=== PATIENT | female | born 1955 | race Hispanic/Latino ===

== ENCOUNTER 2017-08-26 07:59 | Day surgery (SDC) | payer MEDICARE ==
[2017-08-05 10:27] VITALS: BMI 25.2
[2017-08-26] MEDS ORDERED: Iodixanol 320 MG/ML 100 ML BOTTLE IV ONE (08:12)
[2017-08-26 09:07] LABS: INR 0.9; PROTHROMBIN TIME 10.3 SECONDS (9.7-12.2)
[2017-08-26] MEDS ORDERED: Midazolam 2 MG/2 ML VIAL ONE ×2 (09:13→09:40)
[2017-08-26] MEDS ORDERED: Lidocaine 2% Inj (20ml) ONE (09:13)
[2017-08-26] MEDS ORDERED: Nitroglycerin 50mg in D5W 0 MG/0 ML BOTTLE IV ONE (09:15)
[2017-08-26] MEDS ORDERED: Sodium Chloride 0.9% 1,000 ML IV SCH (13:30)
== END 2017-08-26 14:25 | disposition home or self-care (01) ==
LOC: C.SPRAD 07:59
PROVIDERS: ATTEND Internal Medicine Interventional Cardiology
DX: I73.9 Peripheral vascular disease, unspecified (principal)
CPT/HCPCS: 36200; 36415; 75625; 75716; 85610; 85730; C1766; C1769; C1887; J1644; J2250; J3010; J7040; Q9967

== ENCOUNTER → 2017-09-11 | Day surgery (SDC) | payer MEDICARE ==
[2017-08-05 10:27] VITALS: BMI 25.2
[~2017-09-11] MED LIST: Dextrose 5%/0.45% NS 1,000 ML IV SCH; Iodixanol 320 MG/ML 100 ML BOTTLE IV ONE; Lidocaine 2% Inj (20ml) ONE; Midazolam 2 MG/2 ML VIAL ONE; Vancomycin 1 g Inj ONE
[2017-09-11 10:44] LABS: BASO # 0.1 K/uL (0.0-0.2); BASO % 0.6 % (0.0-2.0); EOS # 0.4 K/uL (0.0-0.7); EOS % 3.2 % (0.0-4.0); HEMOGLOBIN 15.6 g/dL (11.0-16.0); LYMPH # 2.5 K/uL (1.0-4.3); LYMPH % 21.3 % (20.0-40.0); MEAN CELL VOLUME 92.5 fL (81.0-99.0); MEAN CORPUSCULAR HEMOGLOBIN 32.5 pg (27.0-31.0); MEAN CORPUSCULAR HGB CONC 35.1 g/dL (33.0-37.0); MEAN PLATELET VOLUME 8.9 fL (7.2-11.7); MONO # 1.1 K/uL (0.0-0.8); MONO % 9.5 % (0.0-10.0); NEUT # 7.7 K/uL (1.8-7.0); NEUT % 65.4 % (50.0-75.0); RBC 4.8 Mil/uL (3.80-5.20); RED CELL DISTRIBUTION WIDTH 12.9 % (11.5-14.5); WHITE BLOOD COUNT 11.7 K/uL (4.8-10.8)
--- NOTE | 2017-09-11 14:08 | PCM.SURG1 ---
Surgeon's Initial Post Op Note - Surgeon's Notes Surgeon: luli/ yuliya green Laborer Car Barn: 0 Type of Anesthesia: IV Sedation Anesthesia Administered By: iad Pre-Operative Diagnosis: right iliac occlusion/ claudication Operative Findings: right iliac occlusion Post-Operative Diagnosis: same Operation Performed: aortofemoral angiogram. balloon angioplasty right common and external iliac artery 6 MM. VBX 7x39 stent right. 7x79 VBX LEFT. PRESSURE CLOSURE BOTH GROINS Specimen/Specimens Removed: 0 Estimated Blood Loss: EBL {In ML}: 35 Blood Products Given: N/A Drains Used: No Drains Post-Op Condition: Good Date of Surgery/Procedure: 09/11/17 Time of Surgery/Procedure: 14:08
--- NOTE | 2017-09-12 09:16 | VAS ---
DATE: 09/11/2017 PREOPERATIVE DIAGNOSES: Claudication, right leg; peripheral vascular disease; right iliac occlusion. PROCEDURE CARRIED OUT: Aortoiliac angiogram. Two punctures. Balloon angioplasty of the right external and common iliac artery and then deployment of VBX 7 x 39 on the left and 7 x 79 on the right VBX covered stent grafts. SURGEON: Srikanth Lima MD CO-SURGEON: Willis Rivers MD ANESTHESIOLOGIST: , WAISTLINE JOINER LOCKSTITCH. INDICATIONS: The patient is a 62-year-old woman, smoker who has had diagnostic evaluation, now presented with increasing claudication in the right leg. OPERATIVE FINDINGS: The findings were as noted previously. The right common iliac artery was occluded. This was successfully crossed with the use of the stiff angled guidewire and then this was dilated with a 6-mm balloon. Subsequent to this, additional films were taken showing location , confluence of the bifurcation of the iliacs, and the stents were deployed on the left side a 7 x 39, on the right side, a 7 x 79. These were in excellent cosmetic position with good apposition and great flow. However, perclose devices were not deployed in the groin, these held by pressure. Blood loss during the procedure is 50 mL. Operation carried out. 1. Angiogram, aortic angiogram and iliac angiogram with bilateral groin punctures. 2. Balloon angioplasty, right common and external iliac artery. 3. Placement of the VBX stents 7-mm in the left common iliac and then the right common and external iliac arteries. Srikanth Lima Jr., MD cc:
== END | disposition home or self-care (01) ==
LOC: C.CATHLAB 09:40
PROVIDERS: ATTEND Surgery Vascular Surgery
DX: I74.5 Embolism and thrombosis of iliac artery (principal); I73.9 Peripheral vascular disease, unspecified
CPT/HCPCS: 36415; 37221; 85025; 93005; J1644; J2250; J3010; J7042; Q9967

== ENCOUNTER 2017-10-30 07:02 | Observation (INO) | payer MEDICARE ==
[2017-08-05 10:27] VITALS: BMI 25.2
[2017-10-30] MEDS ORDERED: ePHEDrine 50 mg/ml Inj ONE (07:15)
[2017-10-30] MEDS ORDERED: Midazolam 2 MG/2 ML VIAL ONE ×4 (07:16→08:40)
[2017-10-30] MEDS ORDERED: Iodixanol 320 MG/ML 100 ML BOTTLE IV ONE ×4 (07:38→11:23)
[2017-10-30] MEDS ORDERED: Iodixanol 320 MG/ML 200 ML BOTTLE IV ONE ×2 (07:38→08:31)
[2017-10-30] MEDS ORDERED: Propofol 10 mg/ml Inj (20 ML) ONE ×2 (09:26→10:35)
--- NOTE | 2017-10-30 12:10 | PCM.SURG1 ---
Surgeon's Initial Post Op Note - Surgeon's Notes Surgeon: luli Plant Maintenance Technician: 0 Type of Anesthesia: IV Sedation Anesthesia Administered By: stephanie Pre-Operative Diagnosis: right leg pain/claudication Operative Findings: right sfa occlusion. tibial disease. see operative note for details Post-Operative Diagnosis: same Operation Performed: aortofemoral angiogram. 2 femoral punctures. bilateral ilaic artery balloon angioplasty 7x40. right sfa pathway atherectomy and dcb. right peroneal artery angioplasty/ atherectomy TP trunk. dc stent 3.5x39 to proximal posterior tibial artery. perclose left. pressure right Specimen/Specimens Removed: 0 Estimated Blood Loss: EBL {In ML}: 50 Blood Products Given: N/A Drains Used: No Drains Post-Op Condition: Good Date of Surgery/Procedure: 10/30/17 Time of Surgery/Procedure: 12:14
[2017-10-30] MEDS ORDERED: Oxycodone/Acetaminophen 5/325 mg Tab PO PRN (12:19)
[2017-10-30] MEDS ORDERED: Oxycodone/Acetaminophen 5/325 mg Tab PO ONE (12:45)
[2017-10-30] MEDS: Dextrose 5%/0.45% NS 1,000 ML IV SCH ×2 (14:37→21:44)
[2017-10-30] MEDS: HYDROmorphone 1 mg/ml ISec IVP PRN ×2 (18:01→22:21)
[2017-10-30 21:30] VITALS: RESP 20
--- NOTE | 2017-10-31 02:15 | VAS ---
DATE: 10/30/2017 PREOPERATIVE DIAGNOSIS: Rest pain, right foot. PROCEDURE CARRIED OUT: Aortofemoral angiogram with 2 punctures, selective catheterization of right femoral artery, bilateral common iliac artery, balloon angioplasty, pathway atherectomy of the right superficial femoral artery with subsequent placement of a 6 mm drug-coated balloon. Balloon angioplasty of the peroneal artery, pathway atherectomy of the tibioperoneal trunk, and then balloon angioplasty of the posterior tibial artery, and then finally, deployment of a 3.5 x 13 mm drug-eluting stent in the proximal portion of the posterior tibial artery in the right leg. SURGEON: Srikanth Lima Jr., MD. ELECTROPLATING WORKER: None. ANESTHESIOLOGIST: Mr. Olguin. ANESTHESIA: Local with sedation. INDICATIONS: The patient is a 62-year-old woman with peripheral vascular disease who was previously on placement of bilateral iliac artery stents. Subsequent imaging confirmed that there is subsequent development of right superficial femoral artery occlusion. In the meantime, the patient says she stopped smoking. Her pain has increased and because of this variety of noninvasive testing, including CT angiography and limited duplex imaging was done at the legs, and some proximal iliac disease. OPERATIVE FINDINGS: The aorta and renal arteries were free of significant occlusive disease. There were atherosclerotic changes at the occlusive disease of the distal portion. Both stents in the left common iliac and right common iliac and external iliac artery were widely patent. The common femoral arteries were widely patent. The right superficial femoral artery occluded in its mid segment, and reconstituted with at least two vessel run off, either peroneal and posterior tibial to the ankle. The anterior tibial artery was diseased in its distal portion. On the left side, there was 3 vessels run off, and the distal portion of the left foot was not visualized. In addition, on completion of the therapeutic procedures on the right side, the 2 stents had enveloped into each other and there was no flow to either lower extremity. We then made simultaneous punctures that were cannulated at the groin, placed 7-Congolese sheath up through that side and dilated this with a 7-mm balloon with good cosmetic results and reconstitution of flow into the leg. The final picture showed good flow to the tube, primarily to the posterior tibial artery after we had deployed a stent in the proximal portion of the posterior tibial artery. DESCRIPTION OF PROCEDURE: The patient was given local anesthesia. Using ultrasound guidance and micropuncture technique, the left common femoral arteries were punctured. Under fluoroscopic control, the guidewire was advanced centrally. With the above mentioned findings, we were able to advance 7-Congolese sheath over the aortic bifurcation and down into the mid portion of the superficial femoral artery. Using roadmapping techniques, the procedure was carried out. We heparinized the patient. We had placed a filter wire distally. By after the completion of the atherectomy, completion of the drug-coated balloon angioplasty, there was a thrombus at the origin of the tibioperoneal trunk. We made multiple attempts to remove this using suction devices, balloons, etc which were unsuccessful, and eventually we used atherectomy device, which created some internal damage, which eventually was resolved with the use of a drug-coated balloon in this area. After completion of that, however, as we were drawing the sheath across the aortic bifurcation, it was evidenced that the 2 stents had enveloped each other, and we had to repuncture and go then up to the aortic bifurcation, placed kissing balloons, which opened up this area adequately and provided good flow. The procedure was then terminated. A Perclose device was deployed on the left side and pressure was applied on the right. So, the operation carried out was aortofemoral angiogram with 2 punctures with selective catheterization of the right femoral artery, bilateral iliac artery balloon angioplasty, right superficial femoral artery atherectomy, and drug-coated balloon. Atherectomy of the tibial peroneal trunk. Stent to the posterior tibial artery and a balloon angioplasty of the posterior tibial artery and peroneal artery. A Perclose deployment on the left, pressure closure on the right. The patient has excellent flow of both feet at the end of the procedure. Srikanth Lima Jr., MD
[2017-10-31] MEDS: HYDROmorphone 1 mg/ml ISec IVP PRN ×2 (05:55→10:26)
[2017-10-31 08:52] VITALS: BP 136/82; PULSE 72; TEMP 98; O2SAT 95
[2017-10-31 11:23] LABS: HEMOGLOBIN 13.7 g/dL (11.0-16.0); MEAN CELL VOLUME 93.4 fL (81.0-99.0); MEAN CORPUSCULAR HEMOGLOBIN 32.2 pg (27.0-31.0); MEAN CORPUSCULAR HGB CONC 34.5 g/dL (33.0-37.0); RBC 4.24 Mil/uL (3.80-5.20); RED CELL DISTRIBUTION WIDTH 13.3 % (11.5-14.5); WHITE BLOOD COUNT 11.1 K/uL (4.8-10.8)
[2017-10-31 11:41] LABS: ALB/GLOB RATIO 1.3 (1.0-2.1); ALBUMIN 3.6 g/dL (3.5-5.0); ALT/SGPT 43 U/L (9-52); AST/SGOT 116 U/L (14-36); BLOOD UREA NITROGEN 8 mg/dL (7-17); CALCIUM 8.5 mg/dl (8.6-10.4); GFR AFRICAN-AMERICAN > 60; GFR NON-AFRICAN AMERICAN > 60
--- NOTE | 2017-11-03 07:39 | PN ---
DATE: 10/31/2017 The patient underwent bilateral iliac artery balloon angioplasty, placement of a posterior tibial artery stent, and right SFA atherectomy and drug-coated balloon angioplasty of the right superficial femoral artery. She is doing quite well. She has a palpable dorsalis pedis pulse on the right side. She has excellent Doppler signals in the posterior tibial artery. She has a nice warm foot on the left side (she has a known SFA occlusion on that side). She is doing well. She has no other complaints. She refused morning blood work which is important to make sure that her kidney function is okay, considering the amount of dye that she got yesterday. Overall, she is doing quite well. She was discharged on the usual medicines plus an additional medicine of Plavix which was given to and discussed with her. She is to follow up with me in the office. Her diet, activity, and followup instructions are given to her. Srikanth Lima Jr., MD cc: Lorena Hernandez MD 10/31/2017<
[2017-11-06] MEDS ORDERED: Ergocalciferol 50,000 Intl Units Cap PO SCH (10:00)
--- NOTE | 2017-11-07 08:36 | HP ---
HISTORY OF PRESENT ILLNESS: The patient is an older middle-aged woman admitted to the hospital as an outpatient for an angiogram and treatment of her right leg. The patient has history of heavy smoking, but she states she recently stopped. She has borderline diabetes. She has hypertension. She is disabled. She has had history of multiple back problems and is unable to . She has had increasing claudication and earlier this year underwent placement of bilateral iliac artery stents at the aortic bifurcation for claudication in the right leg. After recovery from that, she was continuing to smoke, and subsequently developed an occlusion where she had previously had just high-grade stenosis of her right superficial femoral artery. This progressed to complete occlusion and her symptoms increased so much so that her ankle brachial index was 0.4 on the right side. Because of this, our plan is to readmit her to the hospital and to re-intervene on the right leg to carry out interventions on the right leg. The procedure and its risks were discussed successfully. Her exam shows that she has all upper extremity pulses. She has good femoral pulses, the right side appears weaker than the left. Her lower extremity pulses in the lower part is unremarkable and nonpalpable. IMPRESSION: This patient has status post aortoiliac stenting. She has claudication in the right leg, an ankle-brachial index of 0.4, and some pain at rest in the toes. Our plan would be to carry out an angiogram and intervene on the right leg with the intention of increasing the flow to the right foot. The procedure and its risks, the need to be on antiplatelet medication, as well as the absolute need to stop smoking was discussed with the patient. The previous CT angiogram and noninvasive test suggest that there was some iliac disease on the right side. It appeared this will be evaluated extensively as well as our planned treatment on this superficial femoral artery on the right side. Srikanth Lima Jr., MD [facility] # [id number]
== END 2017-10-31 12:19 | disposition home or self-care (01) ==
LOC: C.SPRAD 07:02 → C.9S 12:14 → C.6T 13:20
PROVIDERS: ADMIT Surgery Vascular Surgery; ATTEND Surgery Vascular Surgery
DX: I70.201 Unspecified atherosclerosis of native arteries of extremities, right leg (principal); Z88.0 Allergy status to penicillin; Z87.891 Personal history of nicotine dependence; J44.9 Chronic obstructive pulmonary disease, unspecified; E78.5 Hyperlipidemia, unspecified; F41.9 Anxiety disorder, unspecified; R73.03 Prediabetes; I10 Essential (primary) hypertension
CPT/HCPCS: 36247; 36415; 37220; 37225; 37228; 37231; 75625; 75716; 75774; 80053; 85027; 94770; C1724; C1725; C1769; C1874; C1884; C1887; C1894; C2623; G0378; J1170; J1644; J2250; J2704; J3010; J7042; Q9966; Q9967